=== PATIENT | male | born 1965 | race American Indian/Alaskan Native ===

== ENCOUNTER 2017-05-11 10:56 | Emergency (ER) | payer MEDICAID ==
[2017-05-11 12:02] VITALS: BP 138/72
[2017-05-11] MEDS ORDERED: MOTRIN PO ONE (12:53)
--- NOTE | 2017-05-11 13:04 | XRay Report ---
LEFT ANKLE, 2 views: History: Pain, injury. There is moderate lateral soft tissue swelling. Normal bone mineralization. No acute osseous findings or joint pathology is identified. Large plantar spur. IMPRESSION: Soft tissue swelling.
--- NOTE | 2017-05-11 22:45 | Emergency Department Report ---
Entered by ORTEGA VARGAS, acting as scribe for YOON MONTERO NP. ED Lower Extremity HPI - General Chief Complaint: Extremity Injury, Lower Stated Complaint: LT ANKLE INJURY Time Seen by Provider: 05/11/17 12:27 Source: patient Mode of arrival: Ambulatory Limitations: No Limitations - History of Present Illness Initial Comments: This is a 51-year-old male that presents to the ED c/o left ankle pain and swelling s/o fall. 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 Patient describes swelling and pain to the lateral left ankle as aching with level of 10/10. Patient denies any inversion or twisting of ankle. Denies numbness, tingling, fever, chills, head trauma, LOC, chest pain, shortness of breathe, or joint redness. Patient stated is able to ambulate but is limited due to pain. Patient denies any allergies or PMH. MD Complaint: ankle injury (left) Onset/Timin -: hour(s) Injury: Ankle: Left Type of Injury: unknown Place: street/outdoors Severity: moderate Severity scale (0 -10): 5 Improves With: immobilization Worsens With: weight bearing, movement, palpation Context: fall Associated Symptoms: swelling (LT ankle), able to partially bear weight. denies : snap/pop sensation, numbness, tingling - Related Data Previous Rx's Medication Instructions Recorded Last Taken Type Ibuprofen [Motrin 600 MG tab] 600 mg PO Q8H PRN #30 tablet 05/11/17 Unknown Rx Allergies Allergy/AdvReac Type Severity Reaction Status Date / Time No Known Allergies Allergy Verified 05/11/17 11:59 ED Review of Systems Comment: All other systems reviewed and negative Constitutional: denies: chills, fever Eyes: denies: eye pain, eye discharge, vision change ENT: denies: ear pain, throat pain Respiratory: denies: cough, orthopnea, shortness of breath, SOB with exertion, SOB at rest, stridor, wheezing Cardiovascular: denies: chest pain, palpitations, dyspnea on exertion, orthopnea , edema, syncope, paroxysmal nocturnal dyspnea Endocrine: no symptoms reported Gastrointestinal: denies: abdominal pain, nausea, vomiting, diarrhea Genitourinary: denies: urgency, dysuria Musculoskeletal: joint swelling (LT ankle), arthralgia (LT ankle pain). denies : back pain Skin: denies: rash, lesions Neurological: denies: headache, weakness, numbness, paresthesias Psychiatric: denies: anxiety, depression Hematological/Lymphatic: denies: easy bleeding, easy bruising ED Past Medical Hx - Past Medical History Previous Medical History?: No - Surgical History Past Surgical History?: No - Family History Family history: no significant - Social History Smoking Status: Never Smoker Substance Use Type: None - Medications Home Medications: Home Medications Medication Instructions Recorded Confirmed Last Taken Type Ibuprofen [Motrin 600 MG tab] 600 mg PO Q8H PRN #30 tablet 05/11/17 Unknown Rx ED Physical Exam - General Limitations: No Limitations General appearance: alert, in no apparent distress - Head Head exam: Present: atraumatic, normocephalic - Eye Eye exam: Present: normal appearance, PERRL, EOMI. Absent: scleral icterus, conjunctival injection, nystagmus, periorbital swelling, periorbital tenderness Pupils: Present: normal accommodation - ENT ENT exam: Present: normal exam, normal orophraynx, mucous membranes moist, TM's normal bilaterally, normal external ear exam - Neck Neck exam: Present: normal inspection, full ROM. Absent: tenderness, meningismus, lymphadenopathy, thyromegaly - Respiratory Respiratory exam: Present: normal lung sounds bilaterally. Absent: respiratory distress, wheezes, rales, rhonchi, stridor, chest wall tenderness, accessory muscle use, decreased breath sounds, prolonged expiratory - Cardiovascular Cardiovascular Exam: Present: regular rate, normal rhythm, normal heart sounds. Absent: bradycardia, tachycardia, irregular rhythm, systolic murmur, diastolic murmur, rubs, gallop - GI/Abdominal GI/Abdominal exam: Present: soft, normal bowel sounds. Absent: distended, tenderness, guarding, rebound, rigid - Rectal Rectal exam: Present: deferred - Extremities Exam Extremities exam: Present: full ROM (limited and painful dorsiflexion and plantar flexion motion due to left ankle pain), tenderness, normal capillary refill. Absent: normal inspection, pedal edema, joint swelling, calf tenderness - Expanded Lower Extremity Exam Left Hip exam: Present: normal inspection, full ROM, external rotation, internal rotation, pelvic stability. Absent: tenderness, swelling, abrasion, laceration , ecchymosis, deformity, crepidus, dislocation, erythema, shortening Upper Leg exam: Present: normal inspection, full ROM. Absent: tenderness, swelling, abrasion, laceration, ecchymosis, deformity, crepidus, dislocation, erythema Knee exam: Present: normal inspection, full ROM, full knee extension. Absent: tenderness, swelling, abrasion, laceration, ecchymosis, deformity, crepidus, dislocation, erythema, effusion, pain w/ pronation/supination, posterior draw sign, pain/laxity with valgus, pain/laxity with varus Lower Leg exam: Present: normal inspection, full ROM. Absent: tenderness, swelling, abrasion, laceration, ecchymosis, deformity, crepidus, dislocation, erythema, palpable cord, Evelyn's sign Ankle exam: Present: full ROM (limited and painful dorsiflexion and plantar flexion motion due to left ankle pain), tenderness, swelling. Absent: normal inspection, abrasion, laceration, ecchymosis, deformity, crepidus, dislocation, erythema, anterior draw sign Foot/Toe exam: Present: normal inspection, full ROM. Absent: tenderness, swelling, abrasion, laceration, ecchymosis, deformity, crepidus, dislocation, erythema, amputation, puncture wound, foreign body, calcaneal tenderness, tenderness at base of 5th metatarsal, nail avulsion, subungual hematoma Neuro vascular tendon exam: Present: no vascular compromise. Absent: pulse deficit, abnormal cap refill, motor deficit, sensory deficit, tendon deficit, extremity cold to touch, pallor, abnormal 2-point discrimination, decreased fine /light touch, foot drop, peroneal nerve deficit, significant pain with passive ROM of distal joint Gait: Positive: observed and limited by pain 1 - swelling with tenderness - Back Exam Back exam: Present: normal inspection, full ROM. Absent: tenderness, CVA tenderness (R), CVA tenderness (L), muscle spasm, paraspinal tenderness, vertebral tenderness, rash noted - Neurological Exam Neurological exam: Present: alert, oriented X3, CN II-XII intact, normal gait ( limited gait due to left ankle pain), reflexes normal. Absent: motor sensory deficit - Psychiatric Psychiatric exam: Present: normal affect, normal mood - Skin Skin exam: Present: warm, dry, intact. Absent: rash ED Course Vital Signs 05/11/17 11:59 Temperature 98.6 F Pulse Rate 60 Respiratory 18 Rate Blood Pressure 138/72 O2 Sat by Pulse 100 Oximetry - Reevaluation(s) Reevaluation #1: 05/11/17 13:00 Patient is speaking in full sentences with no signs of distress noted. ED Lower Extremity MDM - Medical Decision Making Ed course: This is a 51-year-old male that presents with left ankle sprain 1- patient was examined by myself. Xray has been obtained of left ankle with negative findings of fractures or dislocation. Dictated by radiologist. Patient was notified of xray findings with no questions noted. 2- Patient received Motrin in the ed for pain and d/c. 3- patient also received ice pack with a jaquan wrap and crutches. Crutches has been educated to patient by RN. 4- pt was referred to follow-up with Dr. Yee in 3-5 days or if symptoms such as numbness, tingling, fever, chills, chest pain or shortness of breathe, or if symptoms worsen to return to the ED as soon as possible. 5- Patient agrees to the d/c instructions and plan of care. At the time of d/c patient is stable with no signs of distress noted. 6- pt was instructed to rice therapy ED Disposition Clinical Impression: Ankle strain Qualifiers: Encounter type: initial encounter Laterality: left Qualified Code(s): S96.912A - Strain of unspecified muscle and tendon at ankle and foot level, left foot, initial encounter Disposition: TO HOME OR SELFCARE Is pt being admited?: No Does the pt Need Aspirin: No Condition: Stable Instructions: Ankle Sprain (ED), RICE Therapy (ED), Crutch Instructions (ED), Ibuprofen (By mouth) Additional Instructions: follow-up with Dr. Yee in 3-5 days or if symptoms such as numbness, tingling , fever, chills, chest pain or shortness of breathe, or if symptoms worsen to return to the ED as soon as possible. Rest, elevate, and ice extremity Prescriptions: Ibuprofen [Motrin 600 MG tab] 600 mg PO Q8H PRN #30 tablet PRN Reason: Pain Referrals: PRIMARY CAREMD [Primary Care Provider] - 3-5 Days IBAN YEE MD [Staff Physician] - 3-5 Days [facility] [Outside] - 3-5 Days [facility] [Outside] - 3-5 Days Forms: Work/School Release Form(ED) This documentation as recorded by the SAM ibarra JASMINE,accurately reflects the service I personally performed and the decisions made by ,YOON MONTERO, DARLINE.
== END 2017-05-11 13:34 | disposition home or self-care (01) ==
LOC: ED 10:56
DX: S96.912A Strain of unspecified muscle and tendon at ankle and foot level, left foot, initial encounter (principal); W22.8XXA Striking against or struck by other objects, initial encounter; Y93.39 Activity, other involving climbing, rappelling and jumping off; Y92.89 Other specified places as the place of occurrence of the external cause; Y99.8 Other external cause status
CPT/HCPCS: 99284

== ENCOUNTER 2018-10-19 06:42 | Emergency (ER) | payer OTHER ==
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
== END 2018-10-19 08:03 | disposition home or self-care (01) ==
LOC: ED 06:42
CPT/HCPCS: 99283

== ENCOUNTER 2018-10-21 04:18 | Emergency (ER) | payer OTHER ==
[2018-10-21] MEDS ORDERED: TORADOL IM ONE (04:37)
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
[2018-10-21 05:59] VITALS: BP 136/80
== END 2018-10-21 05:53 | disposition home or self-care (01) ==
LOC: ED 04:18
DX: S46.912A Strain of unspecified muscle, fascia and tendon at shoulder and upper arm level, left arm, initial encounter (principal); M19.012 Primary osteoarthritis, left shoulder; V49.59XA Passenger injured in collision with other motor vehicles in traffic accident, initial encounter; Y93.89 Activity, other specified; Y92.488 Other paved roadways as the place of occurrence of the external cause; Y99.8 Other external cause status
CPT/HCPCS: 73030; 96372; 99283; J1885

== ENCOUNTER 2019-05-10 17:48 | Emergency (ER) | payer OTHER ==
--- NOTE | 2019-05-10 17:55 | Event Note ---
ED Screening Note ED Screening Note: abscess rle thinks its an insect bite pmh none psh none rx none no cig/etoh/drugs This initial assessment/diagnostic orders/clinical plan/treatment(s) is/are subject to change based on patients health status, clinical progression and re- assessment by fellow clinical providers in the ED. Further treatment and workup at subsequent clinical providers discretion. Patient/guardian urged not to elope from the ED as their condition may be serious if not clinically assessed and managed. Initial orders include: I/D
[2019-05-10] MEDS ORDERED: BOOSTRIX IM ONE (20:31)
--- NOTE | 2019-05-10 21:30 | Emergency Department Report ---
- General Chief complaint: Skin Rash Stated complaint: RT LEG/TOES NUMB Time Seen by Provider: 05/10/19 17:54 Source: patient Mode of arrival: Ambulatory Limitations: No Limitations - History of Present Illness Initial comments: Patient is a 53-year-old male presents to emergency room with complaints of an insect bite to his right lower leg that occurred 3 days ago. He states now he has noticed some pus drainage to the bite and some surrounding redness. States he has been putting alcohol and tiger balm on the insect bite. Did not see what bit him. He is unsure of his last tetanus immunization. Denies any past medical history, history of diabetes, allergies medications. - Related Data Previous Rx's Medication Instructions Recorded Last Taken Type Cyclobenzaprine [Flexeril] 10 mg PO QHS PRN #20 tablet 10/19/18 Unknown Rx Ibuprofen [Motrin 600 MG tab] 600 mg PO Q8H PRN #30 tablet 10/19/18 Unknown Rx Acetaminophen/Codeine [Tylenol 1 tab PO Q6H PRN #8 tab 10/21/18 Unknown Rx /Codeine # 3 tab] Menthol/Camphor [[place] 1 applicatio TP QID PRN #1 tube 10/21/18 Unknown Rx Ointment] Clindamycin [Clindamycin CAP] 450 mg PO TID 7 Days #63 capsule 05/10/19 Unknown Rx Allergies Allergy/AdvReac Type Severity Reaction Status Date / Time No Known Allergies Allergy Verified 05/11/17 11:59 Abscess Boil HPI - HPI Chief Complaint: Skin Rash Stated Complaint: RT LEG/TOES NUMB Time Seen by Provider: 05/10/19 17:54 Home Medications: Previous Rx's Medication Instructions Recorded Last Taken Type Cyclobenzaprine [Flexeril] 10 mg PO QHS PRN #20 tablet 10/19/18 Unknown Rx Ibuprofen [Motrin 600 MG tab] 600 mg PO Q8H PRN #30 tablet 10/19/18 Unknown Rx Acetaminophen/Codeine [Tylenol 1 tab PO Q6H PRN #8 tab 10/21/18 Unknown Rx /Codeine # 3 tab] Menthol/Camphor [[place] 1 applicatio TP QID PRN #1 tube 10/21/18 Unknown Rx Ointment] Clindamycin [Clindamycin CAP] 450 mg PO TID 7 Days #63 capsule 05/10/19 Unknown Rx Allergies/Adverse Reactions: Allergies Allergy/AdvReac Type Severity Reaction Status Date / Time No Known Allergies Allergy Verified 05/11/17 11:59 ED Review of Systems ROS: Stated complaint: RT LEG/TOES NUMB Other details as noted in HPI Comment: All other systems reviewed and negative ED Past Medical Hx - Past Medical History Previous Medical History?: No - Surgical History Past Surgical History?: No - Social History Smoking Status: Never Smoker Substance Use Type: None - Medications Home Medications: Home Medications Medication Instructions Recorded Confirmed Last Taken Type Cyclobenzaprine [Flexeril] 10 mg PO QHS PRN #20 tablet 10/19/18 Unknown Rx Ibuprofen [Motrin 600 MG tab] 600 mg PO Q8H PRN #30 tablet 10/19/18 Unknown Rx Acetaminophen/Codeine [Tylenol 1 tab PO Q6H PRN #8 tab 10/21/18 Unknown Rx /Codeine # 3 tab] Menthol/Camphor [[place] 1 applicatio TP QID PRN #1 tube 10/21/18 Unknown Rx Ointment] Clindamycin [Clindamycin CAP] 450 mg PO TID 7 Days #63 capsule 05/10/19 Unknown Rx ED Physical Exam - General Limitations: No Limitations General appearance: alert, in no apparent distress - Head Head exam: Present: atraumatic, normocephalic - Eye Eye exam: Present: normal appearance - ENT ENT exam: Present: mucous membranes moist - Neurological Exam Neurological exam: Present: alert, oriented X3 - Psychiatric Psychiatric exam: Present: normal affect, normal mood - Skin Skin exam: Present: warm, dry, other (2 cm area of induration and fluctuance with very small opening that has pus drainage present, 7 cm area of surrounding erythema and induration of the right lateral calf, FROM of the RLE, 2+ distal pulses, sensation intact, no skin denuding, no necrosis) ED Course Vital Signs 05/10/19 05/10/19 17:53 22:34 Temperature 99 F 97.8 F Pulse Rate 81 62 Respiratory 20 20 Rate Blood Pressure 135/56 Blood Pressure 135/68 [Left] O2 Sat by Pulse 98 99 Oximetry - I & D Right Lateral Calf Type of Procedure: Simple Site: right lateral calf Blade Size: 11 I & D Procedure: betadine prep, sterile drapes applied, sterile dressing applied Progress: skin prepped with betadine, sterile drapes applied, 2 cc of 1% lidocaine without epi used as anesthetic, 11 blade used to make a 1 cm incision in the central area of fluctuance, moderate amount of pus drainage expressed, gentle probing, irrigated with 30 cc of saline, pt tolerated well, no complications, bleeding controlled, sterile dressing applied ED Medical Decision Making - Medical Decision Making Patient is a 53-year-old male presents to emergency room with complaints of an insect bite to his right lower leg that occurred 3 days ago. He states now he has noticed some pus drainage to the bite and some surrounding redness. States he has been putting alcohol and tiger balm on the insect bite. Did not see what bit him. He is unsure of his last tetanus immunization. Denies any past medical history, history of diabetes, allergies medications. vitals are normal. on exam: 2 cm area of induration and fluctuance with very small opening that has pus drainage present, 7 cm area of surrounding erythema and induration of the right lateral calf, FROM of the RLE, 2+ distal pulses, sensation intact, no skin denuding, no necrosis. pt given clindamycin and tetanus immunization while in the ED. I&D performed per procedure note. advised pt to please take medication as prescribed to completion. Keep area clean and dry. Wash with soap and water and immediately dry. no hot tub, pool, soaking in water. follow up with a primary care doctor in the next 3 days for reevaluation. Return to the emergency room for any new or worsening symptoms or worsening signs of infection despite antibiotic therapy. discussed with pt that if he began to see increasing redness spreading in the leg or increased pus drainage or any new or worsening symptoms then return to the emergency room immediately. - Differential Diagnosis insect bite, spider bite, abscess, cellulitis Critical care attestation.: If time is entered above; I have spent that time in minutes in the direct care of this critically ill patient, excluding procedure time. ED Disposition Clinical Impression: Abscess Cellulitis Qualifiers: Site of cellulitis: extremity Site of cellulitis of extremity: lower extremity Laterality: right Qualified Code(s): L03.115 - Cellulitis of right lower limb Disposition: - TO HOME OR SELFCARE Is pt being admited?: No Does the pt Need Aspirin: No Condition: Stable Instructions: Cellulitis (ED), Abscess Incision and Drainage (ED) Additional Instructions: please take medication as prescribed to completion. Keep area clean and dry. Wash with soap and water and immediately dry. no hot tub, pool, soaking in water. follow up with a primary care doctor in the next 3 days for reevaluation. Return to the emergency room for any new or worsening symptoms or worsening signs of infection despite antibiotic therapy. Prescriptions: Clindamycin [Clindamycin CAP] 450 mg PO TID 7 Days #63 capsule Referrals: SABINE HUMPHREY MD [Primary Care Provider] - 2-3 Days Time of Disposition: 21:31 Print Language: SLOVENIAN
[2019-05-10] MEDS ORDERED: CLEOCIN PO ONE (21:31)
[2019-05-10] MEDS ORDERED: XYLOCAINE 1% MPF 5 mL INFILTRATI ONE (21:33)
[2019-05-10 22:35] VITALS: BP 135/68
== END 2019-05-10 22:36 | disposition home or self-care (01) ==
LOC: ED 17:48
DX: L02.415 Cutaneous abscess of right lower limb (principal); L03.115 Cellulitis of right lower limb
CPT/HCPCS: 90471; 90715; 99282

== ENCOUNTER 2019-06-21 12:28 | Emergency (ER) | payer OTHER ==
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
[2019-06-21] MEDS ORDERED: IBUPROFEN 800 MG TAB PO ONE (13:02)
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
[2019-06-21 13:28] VITALS: BP 129/77
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
== END 2019-06-21 13:27 | disposition home or self-care (01) ==
LOC: ED 12:28
DX: M54.2 Cervicalgia (principal); M54.89 Other dorsalgia; V89.2XXA Person injured in unspecified motor-vehicle accident, traffic, initial encounter; Y93.89 Activity, other specified; Y92.410 Unspecified street and highway as the place of occurrence of the external cause; Y99.8 Other external cause status
CPT/HCPCS: 72040; 99283

== ENCOUNTER 2019-06-26 16:21 | Emergency (ER) | payer OTHER ==
[2019-06-26 16:48] VITALS: BP 129/82
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
== END 2019-06-26 19:46 | disposition home or self-care (01) ==
LOC: ED 16:21
DX: M54.6 Pain in thoracic spine (principal); M54.2 Cervicalgia; Z79.899 Other long term (current) drug therapy; V87.7XXA Person injured in collision between other specified motor vehicles (traffic), initial encounter; Y93.89 Activity, other specified; Y92.488 Other paved roadways as the place of occurrence of the external cause; Y99.8 Other external cause status
CPT/HCPCS: 99282

== ENCOUNTER 2019-07-03 13:43 | Emergency (ER) | payer OTHER ==
[2019-07-03 13:49] VITALS: BP 111/54
== END 2019-07-03 15:59 | disposition left against medical advice (07) ==
LOC: ED 13:43
DX: R51 Headache (principal); Z53.21 Procedure and treatment not carried out due to patient leaving prior to being seen by health care provider

== ENCOUNTER 2020-09-03 06:20 | Emergency (ER) | payer MEDICAID, OTHER ==
[2020-09-03] MEDS ORDERED: LIDOCAINE (2%) 20 MG/1 ML VIAL 20 ML MDV INFILTRATI ONE (09:09)
[2020-09-03] MEDS ORDERED: ACETAMINOPHEN 325 MG TAB PO ONE (09:09)
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
[2020-09-03] MEDS ORDERED: ACETAMINOPHEN 500 MG TAB ONE (09:26)
[2020-09-03] MEDS ORDERED: CLINDAMYCIN 150 MG/ML VIAL 6 ML IM ONE (10:01)
[2020-09-03 11:20] VITALS: BP 146/90
== END 2020-09-03 11:16 | disposition home or self-care (01) ==
LOC: ED 06:20
DX: L02.811 Cutaneous abscess of head [any part, except face] (principal); Z79.2 Long term (current) use of antibiotics; Z79.899 Other long term (current) drug therapy
CPT/HCPCS: 96372; 99282

== ENCOUNTER 2021-01-15 14:18 | Emergency (ER) | payer MEDICAID, OTHER ==
[2021-01-15 14:48] VITALS: BP 141/96
--- NOTE | 2021-01-15 14:52 | Event Note ---
ED Screening Note Date of service: 01/15/21 Time: 14:50 ED Screening Note: Pt c/o neck pain and stiffness for the past few days denies injury or fever states neck feels swollen no recent known sick contacts per pt +ttp over mid cervical vertebrae-no swelling or obvious deformity noted This initial assessment/diagnostic orders/clinical plan/treatment(s) is/are subject to change based on patients health status, clinical progression and re- assessment by fellow clinical providers in the ED. Further treatment and workup at subsequent clinical providers discretion. Patient/guardian urged not to elope from the ED as their condition may be serious if not clinically assessed and managed. Initial orders include: labs xr
[2021-01-15 15:14] LABS: Basophils % (Auto) 0.7 % (0.0-1.8); Eosinophils # (Auto) 0.2 K/mm3 (0.0-0.4); Eosinophils % (Auto) 3.2 % (0.0-4.3); Hematocrit 44.9 % (35.5-45.6); Hemoglobin 15.2 gm/dl (11.8-15.2); Lymphocytes # (Auto) 1.7 K/mm3 (1.2-5.4); Lymphocytes % (Auto) 25.8 % (13.4-35.0); Mean Corpuscular HGB Conc 34 % (32-34); Mean Corpuscular Volume 91 fl (84-94); Monocytes % (Auto) 14.7 % (0.0-7.3); Platelet Count 202 K/mm3 (140-440); Red Blood Count 4.92 M/mm3 (3.65-5.03); Red Cell Distribution Width 13.7 % (13.2-15.2)
[2021-01-15 15:35] LABS: Alanine Aminotransferase 19 units/L (7-56); Blood Urea Nitrogen 19 mg/dL (9-20); Calcium 8.8 mg/dL (8.4-10.2); Hemolysis Index 15
[2021-01-15 15:37] LABS: BUN/Creatinine Ratio 27
--- NOTE | 2021-01-15 15:48 | XRay Report ---
CERVICAL SPINE 4 VIEWS INDICATION: pain and stiffness, no injury. COMPARISON: 06/21/2019 FINDINGS: Cervical kyphosis is again noted. Is minimal retrolisthesis of C5 on C6 which is likely degenerative. Alignment is otherwise unremarkable. There is advanced discogenic degenerative change in the lower cervical spine which is similar to the prior. No fracture is seen. No prevertebral soft tissue swelling. IMPRESSION: 1. No acute findings. Spondylitic changes as above, similar to the prior. Signer Name: Manny Hilliard MD Signed: 01/15/2021 3:44 PM Workstation Name: [id number]
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
== END 2021-01-15 16:48 | disposition home or self-care (01) ==
LOC: ED 14:18
DX: L73.9 Follicular disorder, unspecified (principal); M54.2 Cervicalgia; Z79.899 Other long term (current) drug therapy
CPT/HCPCS: 36415; 72040; 80053; 85025

== ENCOUNTER 2021-08-03 22:17 | Emergency (ER) | payer MEDICAID ==
[2021-08-03] MEDS ORDERED: predniSONE 50 MG TAB PO STA (22:23)
[2021-08-03] MEDS ORDERED: diphenhydrAMINE 25 MG CAP PO STA (22:23)
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
[2021-08-03 23:41] VITALS: BP 114/68
== END 2021-08-04 02:00 | disposition home or self-care (01) ==
LOC: ED 22:17
DX: T78.49XA Other allergy, initial encounter (principal); X58.XXXA Exposure to other specified factors, initial encounter; L29.9 Pruritus, unspecified
CPT/HCPCS: 99282; J7512